=== PATIENT | female | born 1940 | race Caucasian/White ===

== ENCOUNTER → 2016-07-15 | Outpatient (CLI) | payer OTHER ==
--- NOTE | 2016-07-15 09:33 | DX ---
Chest, PA and Lateral July 15, 2016 History: Cough, chest pain, abnormal lung sounds, orthopnea. R05, R09.89, R06.01. Findings: Calcified left perihilar nodule and calcified middle mediastinal lymph node, inferiorly, sh ow no change from August 21, 2010. No acute pulmonary lesions are identified. Lungs are free of infi ltrate. No active adenopathy. Heart size is normal and there is no pleural effusion. Unusual appearan ce of right second rib is unchanged from 2010 and therefore benign. No compression fracture of thorac ic spine. Chronic disk degeneration of upper lumbar spine is accompanied by exuberant osteophytes, ec centric leftward, worse than previous exams. Impression: 1. Previous pulmonary granulomatous disease. 2. No acute cardiopulmonary features. 3. Worsening lumbar degenerative disk disease.
== END ==
LOC: FIMAGING 08:25
PROVIDERS: ATTEND Family Medicine
DX: R05 Cough (principal); R07.9 Chest pain, unspecified; R06.01 Orthopnea; R09.89 Other specified symptoms and signs involving the circulatory and respiratory systems; J84.10 Pulmonary fibrosis, unspecified; M51.36 Other intervertebral disc degeneration, lumbar region